=== PATIENT | female | born 1950 | race Caucasian/White ===

== ENCOUNTER → 2017-05-08 | Outpatient (CLI) | payer OTHER ==
[~2017-05-08] MED LIST: ALPR0.5T3 PO; COLA100C5 PO; CYCL5TAB PO; GABA600T PO; HYDR-3583 PO; IBUP-1129 PO; MORP1TAB25 PO; SYNT88TA PO; VITA250T3 PO; VITA400T14 PO
== END ==
LOC: CPRE 12:35
PROVIDERS: ATTEND Neurological Surgery
DX: Z01.812 Encounter for preprocedural laboratory examination (principal); M48.062 Spinal stenosis, lumbar region with neurogenic claudication; M43.17 Spondylolisthesis, lumbosacral region; M51.36 Other intervertebral disc degeneration, lumbar region; M51.16 Intervertebral disc disorders with radiculopathy, lumbar region
CPT/HCPCS: 87640; 87641

== ENCOUNTER 2017-05-14 05:51 | Inpatient (IN) | payer OTHER ==
--- NOTE | 2017-05-13 15:11 | MH ---
cc: EDGARDO CARRERO M.D. DATE OF ADMISSION 05/14/2017 ADMITTING DIAGNOSIS Lumbar degenerative disc disease. HISTORY OF PRESENT ILLNESS This is a 66-year-old female who presented to us for evaluation of bilateral buttock and posterior leg pain that she has had for a year. She states that the pain has progressively gotten worse. She has burning in her feet that she has had chronically for over five years. She has some low back ache, however, the pain in the buttocks into the posterior leg to the bottom of her feet is the most bothersome to her. She denies any bowel or bladder incontinence, although has a little urgency with her bowels that she relates to her medications. She has difficulty with urination, which again she relates to her medications. She had physical therapy in December of this year, had massage in the legs which exacerbated her pain. She had another evaluation with another physical therapist which she provided exercises and does them at home. She had pain management about 3-4 months ago and had an injection which helped for a day and then she felt that it was not worth going through that again since it did not help her. She has to constantly change position secondary to her pain. PAST MEDICAL HISTORY 1. Hypothyroidism. 2. Hypertension. 3. Anxiety. MEDICATIONS Current medications: 1. Synthroid 88 mcg p.o. daily. 2. Morphine 30 mg q.8h. 3. [place] 10/325 q.12h. p.r.n. breakthrough pain. 4. Neurontin 1500 mg after breakfast and lunch, 1200 mg q.h.s. 5. Ibuprofen was placed on hold prior to surgical intervention. ALLERGIES 1. AMITRIPTYLINE. 2. ARTIFICIAL SWEETENERS. 3. BLUE DYE. 4. CODEINE. 5. DULOXETINE. 6. MELOXICAM. 7. PENTOXIFYLLINE. 8. PREGABALIN. 9. RED DYE. 10. TRAMADOL. 11. TRAZODONE. FAMILY HISTORY Mother is at 82, had ovarian cancer. Father is at 62, had a stroke. She has a sister alive at 69. Brother is alive at 71, and another brother who is 64. SOCIAL HISTORY She is a retired teacher. She is . She has one child. She does not smoke, quit in 2011. She drinks occasionally, 0-2 drinks per month she states. REVIEW OF SYSTEMS CONSTITUTIONAL: She denies any fever or chills. EARS, NOSE, AND THROAT: No pharyngitis, exudates or bloody drainage from her nose. CARDIOVASCULAR: She denies any chest pain or palpitations. RESPIRATORY: No cough or shortness breath. GENITOURINARY: No dysuria or hematuria. MUSCULOSKELETAL: Positive for low back pain. SKIN: No rashes or pruritus. NEUROLOGIC: No difficulty with speech or memory GASTROINTESTINAL: No nausea, vomiting, abdominal pain. PSYCHIATRIC: No anxiety or depression symptoms. ENDOCRINE: No polyuria or polydipsia. HEMATOLOGIC: No bruising or bleeding tendencies. PHYSICAL EXAMINATION HEAD: Normocephalic, atraumatic. NECK: Supple. No carotid bruits heard on auscultation. LUNGS: Clear to auscultation bilaterally. HEART: Regular rate and rhythm. Normal S1, S2. ABDOMEN: Soft, nontender. Positive bowel sounds. SKIN: No cyanosis or erythema. MUSCULOSKELETAL: She has 5/5 strength in the upper and lower extremities. She ambulates without any assistive device. NEUROLOGIC: She is awake, alert and oriented. Cranial nerves II through XII are grossly intact. Her speech is fluent. Comprehension is good. Reflexes are diminished in the lower extremities. DATA REVIEW MRI of the lumbar spine from February 25, 2017 reveals severe spinal stenosis at L1-L2 from degenerative disc disease as well as disc herniation and facet arthropathy, L3-L4, L4-S5 facet ligamentum flavum hypertrophy with grade I L2-L3 retrolisthesis. She has significant L1-L2 endplate changes with disc height collapse from degeneration and inflammation with some associated kyphosis. IMPRESSION A 66-year-old female with a chronic history of low back pain which has progressively gotten worse in the last year, in particular pain radiating into the bilateral buttocks and posterior thigh and calf. She also has complaints of numbness and paresthesias and dysesthesias distally in her feet, has been diagnosed with peripheral neuropathy and is followed by neurology. She has tried physical therapy but this aggravated her symptoms. She had an epidural injection which provided her with just one day of partial relief. She is on high doses of morphine and gabapentin along with when necessary Lorcet. Despite these medications her pain is not controlled. She states that walking more than 100 feet is difficult for her and aggravates her symptoms. Her MRI scan of the lumbar spine from February 25, 2017 reveals severe spinal stenosis at L1-L2 from disc degeneration as well as disc herniation and facet arthropathy at L3-L4 and L4-L5 with ligamentum flavum hypertrophy and a grade I L2-L3 retrolisthesis. She has significant L1-L2 endplate changes with disc height collapse from degeneration and inflammation and some associated kyphosis. She states that she cannot tolerate the pain and activity restrictions anymore. She also relates she has been getting incontinence pads for urinary urgency and frequency. PLAN We have discussed treatment options with the patient which include continued conservative treatment measures which she has failed versus surgical intervention which she is requesting. We have discussed with her an L1-L2 laminectomy with microdiscectomy and L3 through L5 decompressive laminectomy. The other option is an L1-L2 laminectomy with transforaminal interbody fusion along with L3-L4 laminectomy. We have discussed the procedures as well as the risk, benefit, alternative and recovery time in great detail with the patient. We have discussed the risks and benefits of both procedures. No guarantees were given and all of her questions were answered to her satisfaction. She understands that she has chronic peripheral neuropathy which will not resolve despite any surgical intervention. We have discussed the risks involved with surgery include but are not limited to bleeding, infection, muscle weakness, voice hoarseness, difficulty swallowing, heart attack, stroke, blood clots, non-fusion, scar tissue formation, among others. The patient states that she understands the procedure as well as the risks involved and she is requesting that we proceed with lumbar decompression and fusion and she was therefore scheduled accordingly. Dictated by: Rogelio Cervantes PA-C MD IDA Tavera/CARLA /1:46 PM /2:44 PM
[~2017-05-14] VITALS: Ht 170.2 cm; Wt 85.1 kg
[2017-05-14] MEDS ORDERED: SODIUM CHLORID 0.9% 500 ML IV PRN (07:00)
[2017-05-14] MEDS ORDERED: LACTATED RINGER'S 1000 ML IV PRN (07:00)
[2017-05-14] MEDS ORDERED: METOPROLOL TARTRATE 25 MG TAB PO PRN (07:00)
[2017-05-14] MEDS ORDERED: CHLORHEXIDINE GLUCONATE 2 % 1 PACK (2 CLOTHS) TOPICAL PRN (07:00)
[2017-05-14] MEDS ORDERED: VANCOMYCIN 1,000 MG/NS 250 ML IV SCH ×2 (07:00)
[2017-05-14] MEDS ORDERED: INSULIN HUMAN REGULAR 1,000 UNITS/10 ML VIAL SQ PRN (07:00)
[2017-05-14] MEDS ORDERED: POVIDONE IODINE 5% (ANTISEPSIS KIT) 4 APPLICATIONS EACH NARE PRN (07:00)
[2017-05-14] MEDS ORDERED: DEXAMETHASONE SOD PHOS 4 MG/ML VIAL ONE (07:51)
[2017-05-14] MEDS ORDERED: ACETAMINOPHEN 1000 MG/100 ML 100 ML IV ONE (07:51)
[2017-05-14] MEDS ORDERED: PROPOFOL 500 MG/50 ML INJ 100 ML ONE (07:51)
[2017-05-14] MEDS ORDERED: VANCOMYCIN HCL 1000 MG VIAL ONE ×2 (09:41→09:42)
[2017-05-14] MEDS ORDERED: BUPIVACAINE/EPINEPHRINE 0.5% 50 ML VIAL ONE (09:42)
[2017-05-14] MEDS ORDERED: THROMBIN (TOPICAL) 5,000 UNIT VIAL ONE (09:42)
[2017-05-14] MEDS ORDERED: GELFOAM SIZE 100 ONE (09:42)
[2017-05-14] MEDS ORDERED: DO NOT ADM ANY ANTICOAGULANT DRUGS PRN (14:02)
--- NOTE | 2017-05-14 14:16 | PD.OP ---
MD Teena Kent MD Pervez [place], MD Operative Report Date of Surgery: May 14, 2017 Preoperative Diagnosis: Severe L1-2 disc degeneration with disc herniation and facet hypertrophy with grade 1 spondylolisthesis and spinal stenosis; L3-4 and L4-5 facet and ligamentum flavum hypertrophy with associated spinal stenosis Postoperative Diagnosis: Same Procedure: Lumbar L1-2 transforaminal decompression with interbody fusion; L1, L2, L3, L4 and L5 decompressive laminectomies; L1-2 pedicle screw fixation; L1-2 interbody cage placement; microsurgical technique Anesthesia: Gen. endotracheal by [place] dickens Surgeon: Del Aquino M.D. Photo Retoucher(s): Isabel Mejia Operation and Findings: Following initiation of general endotracheal anesthesia, the patient had a Arriola catheter placed along with sequential compression devices. A gram of vancomycin was administered intravenously and he was turned in a prone position on a Richie frame, on a Santos table, and all pressure points adequately padded. The lumbosacral region was then prepped with Chloraprep and sterilely draped with Ioban along the usual sterile draping. A midline skin incision was then made extending from the L1-2 level after infiltrating the skin with 0.5% Marcaine with epinephrine solution extending down through the fascia. The muscle fibers were split using avascular fatty plane and detached from the underlying facets, transverse process and lateral portion of lamina on the right side and a self-retaining retractor used for exposure. Intraoperative fluoroscopy was also used for level of confirmation along with microscope magnification for further dissection. There was significant facet and ligamentum flavum hypertrophy noted at the L1-2 levels. Right L1-2 facet was resected with a drill bit along with the lamina and there was severe foraminal and lateral recess stenosis from hypertrophied ligamentum flavum and facet which were decompressed. There was significant disc herniation on the right side along with disc height collapse and spondylolisthesis also leading to the foraminal stenosis. The herniated disc fragment was removed. Epidural hemostasis was achieved with bipolar cautery and Gelfoam with thrombin. Subsequently entered into the disc space at the L1-2 level with a #15 blade and cong were used for discectomy. I then placed PEEK cage packed with local autograft bone and more local autograft bone was packed adjacent to the cage in interspace for added interbody fusion. With placement of the cage, I was able to distract the interspace and opened up the foramen further bilaterally. Subsequently in order to facilitate the fusion and provide stabilization, pedicle screw fixation was undertaken using [place] spine screws on entry point at the right L1-2 levels at the junction of the transverse process and facet. Subsequently using AP and lateral fluoroscopy tap and screw placement. The screws were then connected with a lc and locked in place with caps. The construct appeared very secure at this point. The area was then copiously irrigated with Vancomycin solution and powder. The retractors were removed and the bipolar cautery used for hemostasis. The muscle fascia was then approximated using 2-0 Vicryl interrupted stitches and then 3-0 Vicryl subcuticular stitches also placed in interrupted fashion. The final skin closure was completed with Mastisol and Steri-Strips. A separate skin incision extending from the L3 to L5 levels were then made in the midline after infiltrating the skin with 0.5% Marcaine with epinephrine solution extending down to the fascia. The muscular attachments to the left-sided spinous process and lamina were detached and a self-retaining retractor used for exposure. A left L3-L4 and L5 laminotomy and medial facetectomy undertaken with significant facet and ligamentum flavum hypertrophy noted compressing the thecal sac and leading to spinal stenosis. Hypertrophied facet and ligamentum flavum was removed from both sides to the left hemilaminotomy approach with gentle thecal sac retraction and a circumferential decompression of spinal canal G from the L3 to L5 levels. Epidural hemostasis achieved with bipolar cautery and Gelfoam and thrombin. The area irrigated with vancomycin solution also fashioned and approximated using 2-0 Vicryl interrupted sutures. 3-0 Vicryl subcuticular sutures placed in interrupted fashion and final skin closure was with Mastisol and Steri-Strips. A sterile dressing was then applied. The patient then turned in supine position, extubated and taken to recovery room. There were no intraoperative complications. All sponge and needle counts were correct at the end of procedure. Estimated blood loss about 100 ml. Del Aquino MD May 14, 2017 14:16
[2017-05-14] MEDS ORDERED: *MEPERIDINE 25 MG INJ VIAL PERIprocedural Use ONLY ONE (14:17)
[2017-05-14] MEDS ORDERED: *HYDROmorphone PF 1 MG VIAL PERIprocedural Use ONLY ONE ×2 (14:23→14:36)
[2017-05-14] MEDS ORDERED: ACETAMINOPHEN 325 MG TAB PO PRN (14:30)
--- NOTE | 2017-05-14 14:38 | RADRPT ---
EXAM DATE/TIME: 05/14/2017 09:36 [facility] COMPARISON: No previous studies available for comparison. INDICATIONS : Fusion L1,L2 and laminectomy from L2 to L5. MEDICAL HISTORY : None. SURGICAL HISTORY : Fusion, cervical. ENCOUNTER: Initial ACUITY: 1 day PAIN SCORE: Non-responsive. LOCATION: Lumbar spine. FINDINGS: Intraoperative film as eventually demonstrate posterior fusion on the right side at the L1-2 level. I ntervertebral markers have been placed.. CONCLUSION: Screws on the right side of L1-2. Osvaldo Benson MD on May 14, 2017 at 14:34 Board Certified Radiologist. This report was verified electronically.
[2017-05-14] MEDS ORDERED: *morphine SULFATE 10 MG/ML PERIprocedure ONLY ONE (14:44)
[2017-05-14] MEDS ORDERED: CALCIUM GLUCONATE INJ 1 GM in SODIUM CHLORIDE 0.9% INJ 100 ML IV PRN (14:45)
[2017-05-14] MEDS ORDERED: ALUMINUM/MAGNESIUM/SIMETH 30 ML CUP PO PRN (14:45)
[2017-05-14] MEDS ORDERED: MAGNESIUM HYDROXIDE SUSP 30 ML CUP PO PRN (14:45)
[2017-05-14] MEDS ORDERED: BISACODYL 10 MG SUPP RECTAL PRN (14:45)
[2017-05-14] MEDS: NS + KCL 20 MEQ INJ 1,000 ML IV SCH (14:45)
[2017-05-14] MEDS ORDERED: LACTULOSE SYRUP 20 GM/30 ML CUP PO PRN (14:45)
[2017-05-14] MEDS: ACETAMINOPHEN/HYDROcodone 325 MG/10 MG TAB PO PRN ×2 (14:50→18:35)
[2017-05-14] MEDS: MORPHINE SULFATE 30 MG CONTROLLED RELEASE TAB PO SCH ×2 (15:00→23:00)
[2017-05-14] MEDS ORDERED: MAGNESIUM SULFATE INJ 2 GM in SODIUM CHLORIDE 0.9% INJ 100 ML IV PRN (15:00)
[2017-05-14] MEDS ORDERED: ONDANSETRON HCL 4 MG/2 ML VIAL IV PUSH PRN (15:00)
[2017-05-14] MEDS ORDERED: PROMETHAZINE INJ 25 MG/ML VIAL IM PRN (15:00)
[2017-05-14] MEDS ORDERED: RESP: ALBUTEROL 2.5 MG/3 ML NEB (PRN) NEB (15:00)
[2017-05-14] MEDS ORDERED: cloNIDine HCL 0.1 MG TAB PO PRN (15:00)
[2017-05-14] MEDS ORDERED: MENTHOL LOZENGE BUCCAL PRN (15:00)
[2017-05-14] MEDS ORDERED: POTASSIUM CHLOR 20 MEQ PREMIX 100 ML IV PRN (15:00)
[2017-05-14] MEDS: ALPRAZolam 0.5 MG TAB PO PRN ×2 (15:04→22:57)
[2017-05-14 16:00] VITALS: BP 130/91; PULSE 79; RESP 16; TEMP 96.4; O2SAT 99
[2017-05-14 16:25] LABS: AUTOMATED NEUTROPHIL # 7.2 TH/MM3 (1.8-7.7); BASOPHIL % 0.4 % (0.0-2.0); EOSINOPHIL # 0.3 TH/MM3 (0-0.4); EOSINOPHIL % 2.8 % (0.0-4.0); HEMATOCRIT 34.8 % (35.0-46.0); HEMOGLOBIN 11.4 GM/DL (11.6-15.3); LYMPH % 27.7 % (9.0-44.0); LYMPHOCYTE # 3.2 TH/MM3 (1.0-4.8); MEAN CELL VOLUME 88.4 FL (80.0-100.0); MEAN CORPUSCULAR HEMOGLOBIN 28.9 PG (27.0-34.0); MEAN CORPUSCULAR HGB CONC 32.7 % (32.0-36.0); MEAN PLATELET VOLUME 10.8 FL (7.0-11.0); MONO % 6.8 % (0.0-8.0); MONOCYTE # 0.8 TH/MM3 (0-0.9); NEUT % 62.3 % (16.0-70.0); PLATELET COUNT 127 TH/MM3 (150-450); RED BLOOD COUNT 3.94 MIL/MM3 (4.00-5.30); RED CELL DISTRIBUTION WIDTH 13.4 % (11.6-17.2); WHITE BLOOD COUNT 11.6 TH/MM3 (4.0-11.0)
[2017-05-14 16:46] LABS: BICARBONATE 27.7 MEQ/L (21.0-32.0); CALCIUM 7.6 MG/DL (8.5-10.1); CREATININE 0.66 MG/DL (0.50-1.00); MAGNESIUM 2.1 MG/DL (1.5-2.5)
[2017-05-14] MEDS: CYCLOBENZAPRINE HCL 10 MG TAB PO SCH ×2 (18:34→22:57)
[2017-05-14 20:08] VITALS: BP 131/65; PULSE 83; RESP 18; TEMP 96.7; O2SAT 97
[2017-05-14] MEDS: GABAPENTIN 300 MG CAP PO SCH (20:31)
[2017-05-14] MEDS: DOCUSATE SODIUM 50 MG/SENNA 8.6 MG TAB PO SCH (20:31)
[2017-05-14] MEDS: SODIUM CHLORIDE 0.9% FLUSH 10 ML FLUSH IV FLUSH SCH (20:32)
[2017-05-14] MEDS: HYDROmorphone HCL PF 2 MG/ML VIAL IV PUSH PRN ×2 (20:33→23:04)
[2017-05-14] MEDS ORDERED: ZOLPIDEM TARTRATE 5 MG TAB PO PRN (21:00)
[2017-05-14 23:50] VITALS: BP 108/56; PULSE 84; RESP 18; TEMP 98.6; O2SAT 94
[2017-05-15] MEDS: NS + KCL 20 MEQ INJ 1,000 ML IV SCH ×2 (00:45→12:08)
[2017-05-15 04:59] VITALS: BP 152/89; PULSE 110; RESP 18; TEMP 101.1; O2SAT 95
[2017-05-15] MEDS: LEVOTHYROXINE SODIUM 88 MCG TAB PO SCH (05:00)
[2017-05-15] MEDS: HYDROmorphone HCL PF 2 MG/ML VIAL IV PUSH PRN ×3 (05:00→21:19)
[2017-05-15] MEDS: CYCLOBENZAPRINE HCL 10 MG TAB PO SCH ×2 (06:33→13:32)
[2017-05-15] MEDS: MORPHINE SULFATE 30 MG CONTROLLED RELEASE TAB PO SCH ×2 (06:33→13:32)
[2017-05-15] MEDS: GABAPENTIN 300 MG CAP PO SCH ×3 (06:33→21:21)
[2017-05-15 08:00] VITALS: BP 105/61; PULSE 102; RESP 17; TEMP 101.7; O2SAT 94
[2017-05-15] MEDS ORDERED: DOCUSATE SODIUM 100 MG CAP PO SCH (09:00)
[2017-05-15] MEDS: SODIUM CHLORIDE 0.9% FLUSH 10 ML FLUSH IV FLUSH SCH ×2 (09:00→21:21)
[2017-05-15] MEDS: ASCORBIC ACID 500 MG TAB PO SCH (09:27)
[2017-05-15] MEDS: SENNOSIDES 8.6 MG TAB PO PRN (09:27)
[2017-05-15] MEDS: DOCUSATE SODIUM 50 MG/SENNA 8.6 MG TAB PO SCH ×2 (09:27→21:21)
[2017-05-15] MEDS: PANTOPRAZOLE SOD 40 MG DELAYED RELEASE TAB PO SCH (09:27)
[2017-05-15] MEDS: ERGOCALCIFEROL (VIT D2) 50,000 UNIT CAP PO SCH (09:27)
[2017-05-15] MEDS: ACETAMINOPHEN/HYDROcodone 325 MG/10 MG TAB PO PRN ×2 (09:28→17:13)
[2017-05-15 12:06] VITALS: BP 111/55; PULSE 83; RESP 16; TEMP 99.7; O2SAT 91
--- NOTE | 2017-05-15 12:53 | HHI.NSPN ---
(Rogelio Cervantes) History Chief Complaint: Incisional pain. (Rogelio Cervantes) Interval History 05/15/17: Pt s/p Lumbar L1-2 transforaminal decompression with interbody fusion ; L1, L2, L3, L4 and L5 decompressive laminectomies; L1-2 pedicle screw fixation ; L1-2 interbody cage placement on 05/14/17. She complains of incisional pain. No radicular pain complaints this morning. Pt is on Oral Morphine 30mg tid, [place] 10/325 two tablets q 4 hours, and Dilaudid 2mg IV q 2 hours, Flexeril 10mg q 8 hours, and her normal scheduled Neurontin doses. She appears to be resting comfortably in bed. She has some periods of confusion and attempts to get oob. (Rogelio Cervantes) Review of Systems General: Negative for: fever, chills, insomnia Respiratory: Negative for: shortness of breath, cough, sputum Cardiovascular: Negative for: chest pain Gastrointestinal: Negative for: nausea, vomitting, diarrhea, constipation ( Rogelio Cervantes) Exam Results Vital Signs Date Time Temp Pulse Resp B/P (MAP) Pulse Ox O2 Delivery O2 Flow Rate FiO2 05/15/17 12:06 99.7 83 16 111/55 (73) 91 05/14/17 16:13 Nasal Cannula 2 Intake and Output 05/15/17 05/15/17 05/16/17 08:00 16:00 00:00 Intake Total 480 ml Output Total 2000 ml Balance -1520 ml (Rogelio Cervantes) Physical Examination General: Pt resting in bed on her side in NAD. Resp: CTA bilaterally Heart: NSR no murmurs Abd: Soft positive bs Skin: Incision clean. Some blood on bandage and new bandage place. Muscle: Moves LEs with good strength 5/5 in LEs. Neuro: Pt awake and alert. Follows commands well. Speech clear and appropriate. Sensation intact. (Rogelio Cervantes) Lab, Micro, Other Results Last Impressions Lumbar Spine X-Ray 05/14/17 0000 Signed Impressions: Service Date/Time: Sunday, May 14, 2017 09:36 - CONCLUSION: Screws on the right side of L1-2. Osvaldo Benson MD Laboratory Tests Test 05/14/17 15:40 White Blood Count 11.6 TH/MM3 Red Blood Count 3.94 MIL/MM3 Hemoglobin 11.4 GM/DL Hematocrit 34.8 % Mean Corpuscular Volume 88.4 FL Mean Corpuscular Hemoglobin 28.9 PG Mean Corpuscular Hemoglobin Concent 32.7 % Red Cell Distribution Width 13.4 % Platelet Count 127 TH/MM3 Mean Platelet Volume 10.8 FL Neutrophils (%) (Auto) 62.3 % Lymphocytes (%) (Auto) 27.7 % Monocytes (%) (Auto) 6.8 % Eosinophils (%) (Auto) 2.8 % Basophils (%) (Auto) 0.4 % Neutrophils # (Auto) 7.2 TH/MM3 Lymphocytes # (Auto) 3.2 TH/MM3 Monocytes # (Auto) 0.8 TH/MM3 Eosinophils # (Auto) 0.3 TH/MM3 Basophils # (Auto) 0.0 TH/MM3 CBC Comment DIFF FINAL Differential Comment Blood Urea Nitrogen 10 MG/DL Creatinine 0.66 MG/DL Random Glucose 96 MG/DL Calcium Level 7.6 MG/DL Magnesium Level 2.1 MG/DL Sodium Level 143 MEQ/L Potassium Level 3.7 MEQ/L Chloride Level 109 MEQ/L Carbon Dioxide Level 27.7 MEQ/L Anion Gap 6 MEQ/L Estimat Glomerular Filtration Rate 90 ML/MIN (Rogelio Cervantes) Medical Decision Making Impression and Plan A: 66 y/o FM s/p Lumbar L1-2 transforaminal decompression with interbody fusion ; L1, L2, L3, L4 and L5 decompressive laminectomies; L1-2 pedicle screw fixation ; L1-2 interbody cage placement on 05/14/17. Pain medication tolerance. Neuropathy LEs. P: Continue to monitor pain control rehab efforts. Continue with Neurontin and pain medication treatment. (Rogelio Cervantes) Attending Statement The exam, history, and the medical decision-making described in the above note were completed with the assistance of the mid-level provider. I reviewed and agree with the findings presented. I attest that I had a [id number] encounter with the patient on the same day, and personally performed and documented my assessment and findings in the medical record. (Del Aquino MD) Rogelio Cervantes May 15, 2017 12:53 Del Aquino MD May 15, 2017 16:31
[2017-05-15 16:00] VITALS: BP 108/54; PULSE 85; RESP 18; TEMP 97.2; O2SAT 92
[2017-05-15] MEDS: SODIUM CHLORIDE 0.9% FLUSH 10 ML FLUSH IV FLUSH PRN (18:24)
[2017-05-15 20:48] VITALS: BP 108/63; PULSE 89; RESP 18; TEMP 100.6; O2SAT 95
[2017-05-15 23:53] VITALS: BP 106/57; PULSE 81; RESP 17; TEMP 97.7; O2SAT 93
[2017-05-16] MEDS: CYCLOBENZAPRINE HCL 10 MG TAB PO SCH ×4 (00:41→23:35)
[2017-05-16] MEDS: MORPHINE SULFATE 30 MG CONTROLLED RELEASE TAB PO SCH ×4 (00:41→23:35)
[2017-05-16] MEDS: HYDROmorphone HCL PF 2 MG/ML VIAL IV PUSH PRN ×6 (00:45→21:21)
[2017-05-16] MEDS: SODIUM CHLORIDE 0.9% FLUSH 10 ML FLUSH IV FLUSH PRN ×5 (00:46→17:03)
[2017-05-16] MEDS: ALPRAZolam 0.5 MG TAB PO PRN (01:52)
[2017-05-16 03:30] VITALS: BP 98/62; PULSE 78; RESP 18; TEMP 98.5; O2SAT 94
[2017-05-16] MEDS: ACETAMINOPHEN/HYDROcodone 325 MG/10 MG TAB PO PRN ×5 (04:52→21:20)
[2017-05-16] MEDS: LEVOTHYROXINE SODIUM 88 MCG TAB PO SCH (05:05)
[2017-05-16] MEDS: GABAPENTIN 300 MG CAP PO SCH ×3 (06:01→21:20)
[2017-05-16 08:00] VITALS: BP 113/57; PULSE 95; RESP 19; TEMP 97.2; O2SAT 93
[2017-05-16] MEDS: ASCORBIC ACID 500 MG TAB PO SCH (08:32)
[2017-05-16] MEDS: SENNOSIDES 8.6 MG TAB PO PRN (08:32)
[2017-05-16] MEDS: ERGOCALCIFEROL (VIT D2) 50,000 UNIT CAP PO SCH (08:32)
[2017-05-16] MEDS: DOCUSATE SODIUM 50 MG/SENNA 8.6 MG TAB PO SCH ×2 (08:32→21:20)
[2017-05-16] MEDS: PANTOPRAZOLE SOD 40 MG DELAYED RELEASE TAB PO SCH (08:32)
[2017-05-16] MEDS: SODIUM CHLORIDE 0.9% FLUSH 10 ML FLUSH IV FLUSH SCH ×2 (08:33→21:23)
--- NOTE | 2017-05-16 09:45 | HHI.NSPN ---
(Rogelio Cervantes) History Chief Complaint: Incisional pain. (Rogelio Cervantes) Interval History 05/15/17: Pt s/p Lumbar L1-2 transforaminal decompression with interbody fusion ; L1, L2, L3, L4 and L5 decompressive laminectomies; L1-2 pedicle screw fixation ; L1-2 interbody cage placement on 05/14/17. She complains of incisional pain. No radicular pain complaints this morning. Pt is on Oral Morphine 30mg tid, [place] 10/325 two tablets q 4 hours, and Dilaudid 2mg IV q 2 hours, Flexeril 10mg q 8 hours, and her normal scheduled Neurontin doses. She appears to be resting comfortably in bed. She has some periods of confusion and attempts to get oob.\ 05/16/17: Pt awake and alert. Complains of incisional pain and low back pain extending into the right superior buttocks. No radiculopathy in LEs. She states she can't tell if she has her neuropathy pain in her LEs. Pt very painful with movement. (Rogelio Cervantes) Review of Systems General: Negative for: fever, chills, insomnia Respiratory: Negative for: shortness of breath, cough, sputum Cardiovascular: Negative for: chest pain Gastrointestinal: Negative for: nausea, vomitting, diarrhea, constipation ( Rogelio Cervantes) Exam Results Vital Signs Date Time Temp Pulse Resp B/P (MAP) Pulse Ox O2 Delivery O2 Flow Rate FiO2 05/16/17 08:00 97.2 95 19 113/57 (75) 93 05/15/17 22:46 21 05/14/17 16:13 Nasal Cannula 2 Intake and Output 05/16/17 05/16/17 05/16/17 07:59 15:59 23:59 Intake Total 480 ml Balance 480 ml (Rogelio Cervantes) Physical Examination General: Pt resting in bed on her side in NAD. Resp: CTA bilaterally Heart: NSR no murmurs Abd: Soft positive bs Skin: Incision clean. Bandage changed by RN this morning and is dry. Muscle: Moves LEs with good strength 5/5 in LEs. Pt getting out of bed to commode and is very painful with movement. Neuro: Pt awake and alert. Follows commands well. Speech clear and appropriate. Sensation intact. (Rogelio Cervantes) Lab, Micro, Other Results Last Impressions Lumbar Spine X-Ray 05/14/17 0000 Signed Impressions: Service Date/Time: Sunday, May 14, 2017 09:36 - CONCLUSION: Screws on the right side of L1-2. Osvaldo Benson MD (Rogelio Cervantes) Medical Decision Making Impression and Plan A: 66 y/o FM s/p Lumbar L1-2 transforaminal decompression with interbody fusion ; L1, L2, L3, L4 and L5 decompressive laminectomies; L1-2 pedicle screw fixation ; L1-2 interbody cage placement on 05/14/17. Pain medication tolerance. Neuropathy LEs. P: Continue to monitor pain control rehab efforts. Continue with Neurontin and pain medication treatment. (Rogelio Cervantes) Attending Statement The exam, history, and the medical decision-making described in the above note were completed with the assistance of the mid-level provider. I reviewed and agree with the findings presented. I attest that I had a [id number] encounter with the patient on the same day, and personally performed and documented my assessment and findings in the medical record. (Del Aquino MD) Rogelio Cervantes May 16, 2017 09:45 Del Aquino MD May 16, 2017 12:55
[2017-05-16 12:17] VITALS: BP 116/66; PULSE 101; RESP 18; TEMP 97.6; O2SAT 92
[2017-05-16] MEDS: ENOXAPARIN SODIUM 40 MG/0.4 ML SYRINGE SQ SCH (15:38)
[2017-05-16 16:00] VITALS: BP 96/52; PULSE 89; RESP 17; TEMP 97.7; O2SAT 94
[2017-05-16 17:33] VITALS: O2SAT 94
[2017-05-16 20:00] VITALS: BP 140/76; PULSE 94; RESP 19; TEMP 99.2; O2SAT 93
[2017-05-17] VITALS: BP 107/66; PULSE 90; RESP 16; TEMP 96.6; O2SAT 93
[2017-05-17] MEDS: ACETAMINOPHEN/HYDROcodone 325 MG/10 MG TAB PO PRN ×5 (01:34→18:35)
[2017-05-17] MEDS: HYDROmorphone HCL PF 2 MG/ML VIAL IV PUSH PRN ×6 (01:39→16:28)
[2017-05-17 04:00] VITALS: BP 119/57; PULSE 91; RESP 17; TEMP 97.9; O2SAT 93
[2017-05-17] MEDS: MORPHINE SULFATE 30 MG CONTROLLED RELEASE TAB PO SCH ×3 (06:56→23:00)
[2017-05-17] MEDS: CYCLOBENZAPRINE HCL 10 MG TAB PO SCH ×2 (06:56→14:07)
[2017-05-17] MEDS: LEVOTHYROXINE SODIUM 88 MCG TAB PO SCH (06:56)
[2017-05-17] MEDS: GABAPENTIN 300 MG CAP PO SCH ×3 (06:58→22:19)
[2017-05-17 08:00] VITALS: BP 108/62; PULSE 83; RESP 17; TEMP 97.4; O2SAT 92
[2017-05-17] MEDS: ERGOCALCIFEROL (VIT D2) 50,000 UNIT CAP PO SCH (08:23)
[2017-05-17] MEDS: SODIUM CHLORIDE 0.9% FLUSH 10 ML FLUSH IV FLUSH SCH ×2 (08:23→22:19)
[2017-05-17] MEDS: DOCUSATE SODIUM 50 MG/SENNA 8.6 MG TAB PO SCH ×2 (08:23→22:19)
[2017-05-17] MEDS: ASCORBIC ACID 500 MG TAB PO SCH (08:23)
[2017-05-17] MEDS: PANTOPRAZOLE SOD 40 MG DELAYED RELEASE TAB PO SCH (08:23)
[2017-05-17] MEDS: ALPRAZolam 0.5 MG TAB PO PRN (10:38)
[2017-05-17 12:00] VITALS: BP 110/65; PULSE 81; RESP 18; TEMP 96.5; O2SAT 94
[2017-05-17] MEDS ORDERED: DIAZEPAM 5 MG TAB PO PRN (14:45)
--- NOTE | 2017-05-17 15:05 | HHI.NSPN ---
(Pierre Garcia) History Chief Complaint: Severe back spasms. (Pierre Garcia) Interval History 05/15/17: Pt s/p Lumbar L1-2 transforaminal decompression with interbody fusion ; L1, L2, L3, L4 and L5 decompressive laminectomies; L1-2 pedicle screw fixation ; L1-2 interbody cage placement on 05/14/17. She complains of incisional pain. No radicular pain complaints this morning. Pt is on Oral Morphine 30mg tid, [place] 10/325 two tablets q 4 hours, and Dilaudid 2mg IV q 2 hours, Flexeril 10mg q 8 hours, and her normal scheduled Neurontin doses. She appears to be resting comfortably in bed. She has some periods of confusion and attempts to get oob.\\ 05/16/17: Pt awake and alert. Complains of incisional pain and low back pain extending into the right superior buttocks. No radiculopathy in LEs. She states she can't tell if she has her neuropathy pain in her LEs. Pt very painful with movement. 05/17: The patient is awake in bed laying on her left side. She says she is doing "Okay" when seen. She complains of severe spasms to the lower back that prevent her from being able to move. She says the spasms have kept her from getting out of bed today. She says the pain is sharp. She also says she has pain going down the back of the right thigh . She denies any saddle anaesthesia and says she is urinating without difficulty. She denies having a bowel movement but does state she is passing flatus. (Pierre Garcia) Exam Results 05/15/17 05/15/17 05/16/17 05/16/17 05/17/17 05/17/17 06:00 18:00 06:00 18:00 06:00 18:00 Intake Total 960 ml 1331 ml 1560 ml 450 ml 840 ml Output Total 2475 ml 1350 ml Balance -1515 ml 1331 ml 210 ml 450 ml 840 ml Intake Oral 960 ml 1560 ml 450 ml 840 ml IV Total 1331 ml Output Urine Total 2475 ml 1350 ml # Voids 2 4 4 # Bowel Movements 0 0 0 Vital Signs Date Time Temp Pulse Resp B/P (MAP) Pulse Ox O2 Delivery O2 Flow Rate FiO2 05/17/17 12:00 96.5 81 18 110/65 (80) 94 05/17/17 08:00 97.4 83 17 108/62 (77) 92 05/17/17 04:00 97.9 91 17 119/57 (77) 93 05/17/17 00:00 96.6 90 16 107/66 (80) 93 05/16/17 20:00 99.2 94 19 140/76 (97) 93 05/16/17 17:33 94 21 05/16/17 16:00 97.7 89 17 96/52 (67) 94 05/16/17 12:17 97.6 101 18 116/66 (83) 92 05/16/17 08:00 97.2 95 19 113/57 (75) 93 05/16/17 03:30 98.5 78 18 98/62 (74) 94 05/15/17 23:53 97.7 81 17 106/57 (73) 93 05/15/17 22:46 21 05/15/17 20:48 100.6 89 18 108/63 (78) 95 05/15/17 16:00 97.2 85 18 108/54 (72) 92 05/15/17 12:06 99.7 83 16 111/55 (73) 91 05/15/17 08:00 101.7 102 17 105/61 (76) 94 05/15/17 04:59 101.1 110 18 152/89 (110) 95 05/14/17 23:50 98.6 84 18 108/56 (73) 94 05/14/17 20:08 96.7 83 18 131/65 (87) 97 05/14/17 16:13 63 16 114/60 (78) 100 Nasal Cannula 2 05/14/17 16:00 96.4 79 16 130/91 (104) 99 05/14/17 15:00 65 16 110/56 (74) 100 Nasal Cannula 2 05/14/17 14:45 66 16 122/63 (82 100 Nasal Cannula 2 (Pierre Garcia) Physical Examination The physical examination is scribed for Dr Nolen by this practitioner. GENERAL: Awake & alert in bed laying on left side. Readily interacts. Appears moderately uncomfortable. No evident distress. MUSCULOSKELETAL: KAISER w/o difficulty. No evident clubbing or deformity. Lower back TTP, dressing intact, no swelling or signs of infection. NEUROLOGICAL: AAOx3. Speech clear & appropriate. Follows command w/o difficulty. Sensation intact to light touch to lower extremities. Muscle strength to lower extremities strong. (Pierre Garcia) Lab, Micro, Other Results Laboratory Tests Test 05/14/17 15:40 White Blood Count 11.6 TH/MM3 Red Blood Count 3.94 MIL/MM3 Hemoglobin 11.4 GM/DL Hematocrit 34.8 % Mean Corpuscular Volume 88.4 FL Mean Corpuscular Hemoglobin 28.9 PG Mean Corpuscular Hemoglobin Concent 32.7 % Red Cell Distribution Width 13.4 % Platelet Count 127 TH/MM3 Mean Platelet Volume 10.8 FL Neutrophils (%) (Auto) 62.3 % Lymphocytes (%) (Auto) 27.7 % Monocytes (%) (Auto) 6.8 % Eosinophils (%) (Auto) 2.8 % Basophils (%) (Auto) 0.4 % Neutrophils # (Auto) 7.2 TH/MM3 Lymphocytes # (Auto) 3.2 TH/MM3 Monocytes # (Auto) 0.8 TH/MM3 Eosinophils # (Auto) 0.3 TH/MM3 Basophils # (Auto) 0.0 TH/MM3 CBC Comment DIFF FINAL Differential Comment Blood Urea Nitrogen 10 MG/DL Creatinine 0.66 MG/DL Random Glucose 96 MG/DL Calcium Level 7.6 MG/DL Magnesium Level 2.1 MG/DL Sodium Level 143 MEQ/L Potassium Level 3.7 MEQ/L Chloride Level 109 MEQ/L Carbon Dioxide Level 27.7 MEQ/L Anion Gap 6 MEQ/L Estimat Glomerular Filtration Rate 90 ML/MIN (Pierre Garcia) Medical Decision Making Impression and Plan Impression: 66 y/o FM s/p Lumbar L1-2 transforaminal decompression with interbody fusion; L1 , L2, L3, L4 and L5 decompressive laminectomies; L1-2 pedicle screw fixation; L1 -2 interbody cage placement on 05/14/17. Pain medication tolerance. Neuropathy LEs. Patient with severe spasms to lower back. Plan: Continue to monitor pain control Rehab efforts. Continue with Neurontin and pain medication treatment. MRI lumbar spine w/o & w/contrast now. 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 D/C cyclobenzaprine. Start methocarbamol 500 mg TID. Consider Xanax PRN. Consider Toradol based upon MRI. Consider steroids based upon MRI. (Pierre Garcia) Attending Statement The exam, history, and the medical decision-making described in the above note were completed with the assistance of the mid-level provider. I reviewed and agree with the findings presented. I attest that I had a [id number] encounter with the patient on the same day, and personally performed and documented my assessment and findings in the medical record. The patient's examination on 05/17/2017 by the undersigned revealed no sensorimotor deficit in the lower extremities. Dressing dry and intact Mostly mild to moderate somewhat diffuse tenderness over the lumbar paraspinous region. Patient still complaining of rather severe pain. Somewhat agitated at times. Discussed with nursing staff on 05/17/2017 Continued to use Xanax more regularly. An MRI of the lumbar spine will be obtained to rule out postoperative epidural hematoma. Depending on MRI results, we will add Toradol and possibly Decadron for a short course. (Hunter Nolen MD) Pierre Garcia May 17, 2017 15:05 Hunter Nolen MD May 18, 2017 14:47
[2017-05-17] MEDS: ENOXAPARIN SODIUM 40 MG/0.4 ML SYRINGE SQ SCH (15:17)
[2017-05-17 16:00] VITALS: BP 106/70; PULSE 82; RESP 18; TEMP 97.1; O2SAT 94
[2017-05-17] MEDS ORDERED: GADODIAMIDE PF 287 MG/ML 10 ML VIAL (for RAD MRI) IVCONTRAST ONE (17:30)
--- NOTE | 2017-05-17 18:25 | RADRPT ---
EXAM DATE/TIME: 05/17/2017 17:16 [facility] COMPARISON: No previous studies available for comparison. INDICATIONS : Post surgical back pain. CONTRAST: 16 cc Omniscan (gadodiamide) IV MEDICAL HISTORY : Hypertension. SURGICAL HISTORY : Fusion, cervical. Discectomy, lumbar. ENCOUNTER: Initial ACUITY: 2 day PAIN SCORE: 5/10 LOCATION: Paraspinal TECHNIQUE: Multiplanar multisequence MRI of the lumbar spine was performed with and without contrast. FINDINGS: The most caudal appearing lumbar vertebra is numbered as L5. VERTEBRAE: Posterior fusion with intervertebral disc device at L1-2. There is also postsurgical changes with luo inectomies of the left at L3-4 and L4-5 levels. There is minimal edema and postsurgical changes. Smal l seroma posteriorly at the midline measuring 2.2 x 1.5 cm. Degenerative disease at L2-3. Diffuse dis c desiccation. CONUS: Normal level and configuration. POST CONTRAST: Enhancement within the posterior soft tissues. No abscess. T12-L1: The thecal sac has a normal diameter. No evidence of disc bulge or protrusion. The neural foramina are patent bilaterally. L1-L2: The thecal sac has a normal diameter. No evidence of disc bulge or protrusion. The neural foramina are patent bilaterally. L2-L3: Minimal retrolisthesis. Mild broad-based protrusion abuts the thecal sac. Very mild canal stenosis. The neural foramina are patent bilaterally. L3-L4: Mild broad-based disc bulge without canal stenosis. Left laminectomy defect. The neural foramina are patent bilaterally. L4-L5: Mild broad-based protrusion more eccentric to left dimension thecal sac. Left laminectomy defect. No canal stenosis. The neural foramina are patent bilaterally. L5-S1: The thecal sac has a normal diameter. No evidence of disc bulge or protrusion. The neural foramina are patent bilaterally. CONCLUSION: 1. Postsurgical changes as described above. No abscess. 2. Minimal retrolisthesis and broad-based protrusion at L2-3 causes mild canal stenosis. 3. Broad-based disc bulge at L3-4 with laminectomy defect. No canal stenosis. 4. Mild broad-based protrusion at L4-5 with laminectomy defect. No canal stenosis. 5. Small seroma posteriorly at L4-5 level measures 2.2 x 1.5 cm. Rogelio Delatorre MD on May 17, 2017 at 18:17 Board Certified Radiologist. This report was verified electronically.
[2017-05-17 20:00] VITALS: BP 114/66; PULSE 84; RESP 18; TEMP 97.4; O2SAT 95
[2017-05-17] MEDS: METHOCARBAMOL 500 MG TAB PO SCH (22:19)
[2017-05-18] VITALS (8 sets, daily range): BP systolic 107–144; BP diastolic 56–75; PULSE 79–110; RESP 16–18; TEMP 96.8–98.2; O2SAT 94–95
[2017-05-18] MEDS: ACETAMINOPHEN/HYDROcodone 325 MG/10 MG TAB PO PRN ×2 (03:33→09:13)
[2017-05-18] MEDS: ALPRAZolam 0.5 MG TAB PO PRN ×2 (03:33→12:32)
[2017-05-18] MEDS: MORPHINE SULFATE 30 MG CONTROLLED RELEASE TAB PO SCH ×3 (05:45→22:30)
[2017-05-18] MEDS: LEVOTHYROXINE SODIUM 88 MCG TAB PO SCH (05:45)
[2017-05-18] MEDS: METHOCARBAMOL 500 MG TAB PO SCH ×3 (05:45→22:30)
[2017-05-18] MEDS: GABAPENTIN 300 MG CAP PO SCH ×3 (06:41→20:25)
[2017-05-18] MEDS: HYDROmorphone HCL PF 2 MG/ML VIAL IV PUSH PRN ×2 (07:11→11:57)
[2017-05-18] MEDS: ASCORBIC ACID 500 MG TAB PO SCH (09:10)
[2017-05-18] MEDS: ERGOCALCIFEROL (VIT D2) 50,000 UNIT CAP PO SCH (09:10)
[2017-05-18] MEDS: PANTOPRAZOLE SOD 40 MG DELAYED RELEASE TAB PO SCH (09:10)
[2017-05-18] MEDS: DOCUSATE SODIUM 50 MG/SENNA 8.6 MG TAB PO SCH ×2 (09:10→20:25)
[2017-05-18] MEDS: SODIUM CHLORIDE 0.9% FLUSH 10 ML FLUSH IV FLUSH SCH ×2 (09:11→21:00)
[2017-05-18] MEDS ORDERED: KETOROLAC TROMETHAMINE 30 MG/ML (IVP) VIAL IV PUSH SCH ×2 (13:00→14:45)
[2017-05-18] MEDS ORDERED: DEXAMETHASONE SOD PHOS 4 MG/ML VIAL IV PUSH SCH (13:00)
[2017-05-18] MEDS ORDERED: PANTOPRAZOLE SOD 40 MG DELAYED RELEASE TAB PO SCH (13:00)
[2017-05-18] MEDS: ENOXAPARIN SODIUM 40 MG/0.4 ML SYRINGE SQ SCH (13:54)
--- NOTE | 2017-05-18 14:52 | HHI.NSPN ---
History Chief Complaint: Severe back spasms. Interval History According to the patient's nursing staff, she was very agitated, crying, complaining of pain this morning. She was given a dose of Xanax. She is now in bed very comfortable, not complaining of any significant pain. A little lethargic from the Xanax. According to nursing staff, the patient's daughter voices some concern that the patient has problems with over use of narcotic medication. Much of the patient's excessive pain response seems to be agitation related to possible prolonged excessive narcotic use. Exam Results Vital Signs Date Time Temp Pulse Resp B/P (MAP) Pulse Ox O2 Delivery O2 Flow Rate FiO2 05/18/17 12:27 16 05/18/17 12:00 97.2 84 144/75 (98) 95 05/18/17 05:06 21 05/14/17 16:13 Nasal Cannula 2 Intake and Output 05/18/17 05/18/17 05/19/17 08:00 16:00 00:00 Intake Total 240 ml Balance 240 ml Physical Examination GENERAL: Awake & alert in bed laying on left side. Readily interacts. Appears moderately uncomfortable. No evident distress. MUSCULOSKELETAL: KAISER w/o difficulty. No evident clubbing or deformity. Lower back TTP, dressing intact, no swelling or signs of infection. NEUROLOGICAL: Mildly lethargic. Fully oriented Speech clear & appropriate. Follows command w/o difficulty. Sensation intact to light touch to lower extremities. Muscle strength to lower extremities normal all major flexion and extension groups Lab, Micro, Other Results 05/17/2017 MRI lumbar spine images reviewed. The study reveals no evidence of significant postoperative epidural hematoma or significant residual canal stenosis. There is mild to moderate edema and some signal intensity change in the mid lumbar paraspinous musculature. Lumbar Spine MRI 05/17/17 0000 Signed Impressions: Service Date/Time: Wednesday, May 17, 2017 17:16 - CONCLUSION: 1. Postsurgical changes as described above. No abscess. 2. Minimal retrolisthesis and broad-based protrusion at L2-3 causes mild canal stenosis. 3. Broad-based disc bulge at L3-4 with laminectomy defect. No canal stenosis. 4. Mild broad-based protrusion at L4-5 with laminectomy defect. No canal stenosis. 5. Small seroma posteriorly at L4-5 level measures 2.2 x 1.5 cm. Rogelio Delatorre MD Lumbar Spine X-Ray 05/14/17 0000 Signed Impressions: Service Date/Time: Sunday, May 14, 2017 09:36 - CONCLUSION: Screws on the right side of L1-2. Osvaldo Benson MD Medical Decision Making Impression and Plan Impression: 1. Stable neurologic exam postoperative. Patient has had episodes of agitation , crying, excessive pain response which seems to be resolved with Xanax. She does have some paraspinous muscle edema noted on MRI which could be contributing to some of her pain. Plan: Findings were discussed with the patient as well as with her daughter in the room today. Discussed with nursing staff Continue Xanax at a lower dose. Plan to initiate a brief course of Toradol and Decadron for possible postoperative myofascial pain and edema. Continue physical therapy. Discussed with physical therapy today Hunter Nolen MD May 18, 2017 14:52
[2017-05-18] MEDS ORDERED: ALPRAZolam 0.5 MG TAB PO PRN (15:30)
[2017-05-18] MEDS: KETOROLAC TROMETHAMINE 60 MG/2 ML (IM) VIAL IM SCH (17:13)
[2017-05-18] MEDS: DEXAMETHASONE SOD PHOS 4 MG/ML VIAL IV PUSH SCH (22:31)
[2017-05-19 00:09] VITALS: BP 112/69; PULSE 77; RESP 16; TEMP 96.9; O2SAT 95
[2017-05-19] MEDS: KETOROLAC TROMETHAMINE 60 MG/2 ML (IM) VIAL IM SCH ×3 (00:34→11:30)
[2017-05-19 04:05] VITALS: BP 127/79; PULSE 76; RESP 16; TEMP 96.2; O2SAT 95
[2017-05-19] MEDS: DEXAMETHASONE SOD PHOS 4 MG/ML VIAL IV PUSH SCH (05:37)
[2017-05-19] MEDS: LEVOTHYROXINE SODIUM 88 MCG TAB PO SCH (05:38)
[2017-05-19] MEDS: METHOCARBAMOL 500 MG TAB PO SCH ×2 (05:38→15:05)
[2017-05-19 08:00] VITALS: BP 126/75; PULSE 74; RESP 18; TEMP 95.9; O2SAT 91
[2017-05-19] MEDS: MORPHINE SULFATE 30 MG CONTROLLED RELEASE TAB PO SCH ×2 (08:23→15:05)
[2017-05-19] MEDS: GABAPENTIN 300 MG CAP PO SCH ×2 (08:23→11:29)
[2017-05-19] MEDS: PANTOPRAZOLE SOD 40 MG DELAYED RELEASE TAB PO SCH (08:24)
[2017-05-19] MEDS: ERGOCALCIFEROL (VIT D2) 50,000 UNIT CAP PO SCH (08:24)
[2017-05-19] MEDS: SODIUM CHLORIDE 0.9% FLUSH 10 ML FLUSH IV FLUSH SCH (08:24)
[2017-05-19] MEDS: DOCUSATE SODIUM 50 MG/SENNA 8.6 MG TAB PO SCH (08:24)
[2017-05-19] MEDS: ASCORBIC ACID 500 MG TAB PO SCH (08:24)
--- NOTE | 2017-05-19 09:02 | HHI.NSPN ---
History Chief Complaint: Severe back spasms. Interval History 05/15/17: Pt s/p Lumbar L1-2 transforaminal decompression with interbody fusion ; L1, L2, L3, L4 and L5 decompressive laminectomies; L1-2 pedicle screw fixation ; L1-2 interbody cage placement on 05/14/17. She complains of incisional pain. No radicular pain complaints this morning. Pt is on Oral Morphine 30mg tid, [place] 10/325 two tablets q 4 hours, and Dilaudid 2mg IV q 2 hours, Flexeril 10mg q 8 hours, and her normal scheduled Neurontin doses. She appears to be resting comfortably in bed. She has some periods of confusion and attempts to get oob.\ 05/16/17: Pt awake and alert. Complains of incisional pain and low back pain extending into the right superior buttocks. No radiculopathy in LEs. She states she can't tell if she has her neuropathy pain in her LEs. Pt very painful with movement. 05/19/17: Pt awakens to voice. She states she thinks she is feeling better today. She states she hasn't ambulated much over the weekend secondary to her pain but she is feeling better and looking forward to ambulating with PT. She states she has been getting severe spasms in the right hip. She states she doesn't notice her neuropathy symptoms until she is up and ambulating. Review of Systems General: Negative for: fever, chills, insomnia Respiratory: Negative for: shortness of breath, cough, sputum Cardiovascular: Negative for: chest pain Gastrointestinal: Negative for: nausea, vomitting, diarrhea, constipation Exam Results Vital Signs Date Time Temp Pulse Resp B/P (MAP) Pulse Ox O2 Delivery O2 Flow Rate FiO2 05/19/17 08:00 95.9 74 18 126/75 (92) 91 05/18/17 18:17 21 Intake and Output 05/19/17 05/19/17 05/20/17 08:00 16:00 00:00 Intake Total 240 ml Balance 240 ml Physical Examination General: Awake & alert in bed. Appears more comfortable and was sleeping when I entered but awakens to voice easily. Resp: CTA bilaterally Heart: NSR no murmurs. Abd: Soft positive bs. Skin: No cyanosis or erythema. Musculoskeletal: KAISER w/o difficulty 5/5 strength. Neurological: Pt awake and alert. Follows commands well. Speech clear and appropriate. Sensation intact in LEs. Lab, Micro, Other Results Last Impressions Lumbar Spine MRI 05/17/17 0000 Signed Impressions: Service Date/Time: Wednesday, May 17, 2017 17:16 - CONCLUSION: 1. Postsurgical changes as described above. No abscess. 2. Minimal retrolisthesis and broad-based protrusion at L2-3 causes mild canal stenosis. 3. Broad-based disc bulge at L3-4 with laminectomy defect. No canal stenosis. 4. Mild broad-based protrusion at L4-5 with laminectomy defect. No canal stenosis. 5. Small seroma posteriorly at L4-5 level measures 2.2 x 1.5 cm. Rogelio Delatorre MD Lumbar Spine X-Ray 05/14/17 0000 Signed Impressions: Service Date/Time: Sunday, May 14, 2017 09:36 - CONCLUSION: Screws on the right side of L1-2. Osvaldo Benson MD Medical Decision Making Impression and Plan A: 66 y/o FM s/p Lumbar L1-2 transforaminal decompression with interbody fusion ; L1, L2, L3, L4 and L5 decompressive laminectomies; L1-2 pedicle screw fixation ; L1-2 interbody cage placement on 05/14/17. Pain medication tolerance. Neuropathy LEs. P: Rehab placement OOB with PT this morning. Rogelio Cervantes May 19, 2017 9:02 am
[2017-05-19 12:00] VITALS: BP 121/71; PULSE 105; RESP 18; TEMP 97.8; O2SAT 94
[2017-05-19] MEDS ORDERED: ALPR0.5T3 PO (12:14)
[2017-05-19] MEDS ORDERED: HYDR-3583 PO (12:14)
[2017-05-19] MEDS ORDERED: METH500T3 PO (12:14)
[2017-05-19] MEDS: ENOXAPARIN SODIUM 40 MG/0.4 ML SYRINGE SQ SCH (15:05)
[2017-05-19] MEDS ORDERED: MORP1TAB25 PO (15:14)
[2017-05-19 16:05] VITALS: RESP 16
== END 2017-05-19 16:48 | DRG 460 ==
LOC: HSDI 05:51 → N06B 16:50
PROVIDERS: ADMIT Neurological Surgery; ATTEND Neurological Surgery
PROC: 0ST20ZZ Resection of Lumbar Vertebral Disc, Open Approach (ICD-10-PCS; 2017-05-14)
PROC: 0SG10AJ Fusion of 2 or more Lumbar Vertebral Joints with Interbody Fusion Device, Posterior Approach, Anterior Column, Open Approach (ICD-10-PCS; principal; 2017-05-14 09:24)
DX: M48.061 Spinal stenosis, lumbar region without neurogenic claudication (principal); G62.9 Polyneuropathy, unspecified; I10 Essential (primary) hypertension; E03.9 Hypothyroidism, unspecified; M46.96 Unspecified inflammatory spondylopathy, lumbar region; M51.26 Other intervertebral disc displacement, lumbar region; F41.9 Anxiety disorder, unspecified; M40.209 Unspecified kyphosis, site unspecified; M62.830 Muscle spasm of back; Z80.41 Family history of malignant neoplasm of ovary; Z82.3 Family history of stroke; R35.0 Frequency of micturition; R39.15 Urgency of urination
CPT/HCPCS: 72100; 72158; 76000; 80048; 83735; 85025; 86850; 86900; 86901; 94150; A9579; C1713; J0131; J0690; J1100; J1170; J1650; J1885; J2175; J2270; J2405; J3010; J3370; J3480; J7120